=== PATIENT | female | born 1965 | race Caucasian/White ===

== ENCOUNTER 2021-03-09 08:03 | Emergency (ER) | payer OTHER ==
[~2021-03-09] VITALS: Ht 160 cm; Wt 65.8 kg
== END 2021-03-09 16:06 | disposition home or self-care (01) ==
LOC: ER 08:03
DX: K52.89 Other specified noninfective gastroenteritis and colitis (principal); K76.89 Other specified diseases of liver; R11.11 Vomiting without nausea; R10.31 Right lower quadrant pain